=== PATIENT | female | born 1955 | race African-American/Black ===

== ENCOUNTER → 2022-05-04 13:19 | Outpatient (CLI) | payer MEDICARE, SELFPAY ==
--- NOTE | ~2022-05-04 | US_ITS ---
EXAMINATION: US pelvic complete DATE: 05/04/2022 13:35 INDICATION: Postmenopausal bleeding. Comparison:No prior studies for comparison. TECHNIQUE: Multiple transabdominal and endovaginal sonographic images of the pelvis performed. FINDINGS: The uterus measures 10.7 x 6.1 x 5.6 cm. There is a partially calcified uterine mass measur ing 7 x 6.5 x 5.9 cm, consistent with a fibroid. The endometrial complex measures 1.2 cm. The right ovary measures 4.3 x 3 x 3.3 cm. Left ovary is not visualized. There are small follicles in each ovary. Normal doppler signal in both ovaries. There is no free fluid in the pelvis. There are no abnormal masses seen on either side. IMPRESSION: 1. Thickened endomtrial complex. The differential diagnosis includes endometrial hyperplasia, polyp a nd carcinoma. Biopsy is recommended. 2: Enlarged fibroid uterus. Reviewed, dictated and finalized at location B. IMPRESSION: 1. Thickened endomtrial complex. The differential diagnosis includes endometria l hyperplasia, polyp and carcinoma. Biopsy is recommended. 2: Enlarged fibroid uterus.
== END ==
PROVIDERS: PCP Family Medicine; Visit Provider Family Medicine
DX: N95.0 Postmenopausal bleeding (principal); D25.9 Leiomyoma of uterus, unspecified
CPT/HCPCS: 76856

== ENCOUNTER 2022-11-05 10:24 | Outpatient (CLI) | payer MEDICARE, SELFPAY ==
--- NOTE | ~2022-11-05 | MM_ITS ---
EXAMINATION: MM screening [facility] BI w karolina HISTORY: Screening mammogram TECHNIQUE: Craniocaudal and mediolateral oblique 3-D tomosynthesis images were obtained and synthetic 2-D images were generated. CAD analysis was submitted and interpreted. COMPARISON: November 04, 2018, April 29, 2017, February 26, 2016 bilateral screening mammogram examinatio ns BREAST PARENCHYMAL COMPOSITION: There are scattered areas of fibroglandular density. FINDINGS: There is no evidence of suspicious mass, calcification, or architectural distortion to sugg est malignancy in either breast. There has been no suspicious interval change. IMPRESSION: 1. No mammographic evidence of malignancy. 2. Recommend routine screening mammography in one year. BI-RADS Category 1: Negative Reviewed, dictated and finalized at location A. [employer]E [employer]CH[employer]IC
== END 2022-11-05 10:25 | disposition home or self-care (01) ==
PROVIDERS: PCP Family Medicine; Visit Provider Physician Assistant
DX: Z12.31 Encounter for screening mammogram for malignant neoplasm of breast (principal)
CPT/HCPCS: 77063; 77067

== ENCOUNTER → 2023-03-15 13:39 | Outpatient (CLI) | payer MEDICARE, SELFPAY ==
--- NOTE | ~2023-03-15 | US_ITS ---
EXAMINATION: US pelvic complete w TV DATE: 03/15/2023 14:04 INDICATION: Encounter for routine checking of intrauterine device TECHNIQUE: Multiple transabdominal and endovaginal sonographic images of the pelvis were obtained. COMPARISON: 05/04/2022 FINDINGS: The uterus measures 6.3 x 4 x 4.7 cm. The endometrial complex measures 7 mm. The IUD appear s to be in expected position. The ovaries are not visualized however no adnexal abnormality is seen. There is no free fluid in the pelvis. IMPRESSION: 1. IUD appears to be in expected position. Reviewed, dictated and finalized at location []
== END ==
PROVIDERS: PCP Family Medicine; Visit Provider Obstetrics & Gynecology
DX: Z30.431 Encounter for routine checking of intrauterine contraceptive device (principal)
CPT/HCPCS: 76830; 76856

== ENCOUNTER 2025-03-27 15:02 | Emergency (ER) | payer MEDICARE, SELFPAY ==
--- NOTE | ~2025-03-27 | XR_ITS ---
EXAM/ PROCEDURE: XR knee LT min 4V - 03/27/2025 15:30 CDT HISTORY: 69 years old Female with anterior Lt knee pain COMPARISON: None available TECHNIQUE: Four view(s) FINDINGS/ IMPRESSION: There are no fractures or dislocations.Joint space narrowing, subchondral sclerosis, subchondral cyst formation and osteophyte formation, compatible with mild osteoarthritis, most progressed in the medi al tibiofemoral compartment. Reviewed, dictated and finalized at location A.
[2025-03-27 15:26] VITALS: BP 139/99; PULSE 106; RESP 16; TEMP 36.1; O2SAT 100
--- NOTE | 2025-03-27 15:33 | ED_ITS ---
HPI - Extremity Injury (Lower) General Chief Complaint: Extremity Injury, Lower Stated Complaint: L KNEE PAIN Time Seen by Provider: 03/27/25 15:30 Source: patient Mode of arrival: ambulatory Limitations: no limitations History of Present Illness HPI Narrative: Ryann is a 61-year-old female patient presenting to the clinic today with complaints of left knee pain. She reports she felt left knee pain after she was walking at the mall 2 days ago. States there is pain to the anterior knee that is radiating up into her left hip. States that is very painful to walk or move her left knee. Has tried ice and heat to the affected area to help alleviate the pain without relief. She denies any fall or injury. Has osteoarthritis in both knees and gets knee cortisone injections. Related Data Home Medications ?Medication ?Instructions ?Recorded ?Confirmed ?Last Taken ?Type levonorgestrel (Mirena) intrauterine 10/26/22 01/05/25 Unknown History Allergies Allergy/AdvReac Type Severity Reaction Status Date / Time No Known Allergies Allergy Unknown Verified 01/05/25 10:28 Review of Systems Review of Systems: Pertinent positives per HPI. Patient denies any fever, chills, rash, headache, visual changes, dizziness, cough, runny nose, sore throat, shortness of breath, chest pain, palpitations, nausea, vomiting, diarrhea, constipation, abdominal pain, or any urinary issues. [facility] Past Medical History Medical History Anxiety and depression Essential (primary) hypertension Prediabetes Surgical History Surgical History H/O removal of cyst History of tubal ligation Family History Family History Father Patient's father is Carcinoma of colon Malignant neoplasm of prostate Mother Diabetes mellitus Depression Hypertension Ovarian cancer Grandparent Family history of glaucoma Cerebrovascular accident Sibling Diabetes mellitus Hypertension Other Family history of allergic disorder Social History Social History Smoking status: Never smoker Alcohol intake: current Lack of Transportation: No Lack of Food: Never True Current Housing: I Have Housing Concerned About Future Housing: No Difficulty Paying Gas/Electric Bills: No Difficulty Paying for Meds: No Currently Unemployed: No Education: Associate Degree Living arrangements: with family Agree to blood products: Yes Comments At the time of my signature, I reviewed and agree with the nursing past medical, surgical, social, and family history. There is no relevant family history pertinent to the patient complaint. Exam Narrative: General: Well-developed, morbidly obese, in no apparent distress Head: Normocephalic, atraumatic. Cardio: Regular rate and rhythm, s1 and s2 normal, no murmur appreciated. Resp: Clear to auscultation bilaterally, no rhonchi, rales, wheezing or rubs. Musculoskeletal: No deformity, no obvious swelling noted, left anterior/lateral knee tender to palpation, pain with flexion and extension as well as valgus and varus testing, grossly normal range of motion, muscle strength strong and equal, peripheral pulse strong, no edema, no cyanosis, normal gait and station Course Course Emergency Course: Portions of this record may have been created with voice recognition software. Level of Care: Express Care Visit Vital Signs Vital signs: Vital Signs Temperature 36.1 C L 03/27/25 15:26 Pulse Rate 106 H 03/27/25 15:26 Respiratory Rate 16 03/27/25 15:26 Blood Pressure 139/99 H 03/27/25 15:26 Pulse Oximetry 100 03/27/25 15:26 Temperature 36.1 C L 03/27/25 15:26 Pulse Rate 106 H 03/27/25 15:26 Respiratory Rate 16 03/27/25 15:26 Blood Pressure 139/99 H 03/27/25 15:26 Pulse Oximetry 100 03/27/25 15:26 Vital signs reviewed MDM - Extremity Injury (Lower) MDM Narrative Medical decision making narrative: At the time of visit patient is resting comfortably on the exam table. Patient appears to be nontoxic. Diagnostics: X-ray of the left knee was performed and shows osteoarthritis. No sign of fracture or malalignment. Plan: I suspect patient has osteoarthritis an anterior knee pain. Prescription for naproxen was sent to the pharmacy. Ryan wrap was given. Supportive measures were discussed with the patient and they voiced understanding discharge instructions and agrees to treatment plan. Return precautions reviewed Differential Diagnosis Differential diagnosis: Likely acute internal derangement of knee and other (Patellofemoral syndrome, acute knee sprain) Discharge Plan Discharge Clinical Impression: Anterior knee pain Qualifiers: Laterality: left Qualified Code(s): M25.562 - Pain in left knee Patient Disposition: Home Condition: Stable Instructions: Antibiotic Form, Knee Pain (ED) Additional Instructions: Left knee x-rays negative for any sign of fracture or malalignment-does show osteoarthritis Take naproxen as prescribed Rest, ice, elevate, and wear ryan wrap as directed Tylenol/motrin for pain as discussed. Gradually bear weight No running or sports until healed. Follow up with your PCP if symptoms persist more than 1 week. Patient Language: Bulgarian Prescriptions: New naproxen 500 mg tablet 500 mg PO BID PRN (Reason: pain) 7 Days Qty: 14 0RF No Action (DME) blood pressure cuff kit See Rx Instructions .Route .MEDSUPPLY Qty: 1 0RF Rx Instructions: wrist cuff Mounjaro 5 mg/0.5 mL pen injector 5 mg subcut WEEKLY Qty: 6 1RF Mirena 21 mcg/24 hours (8 yrs) 52 mg intrauterine device intrauterine buspirone 5 mg tablet 5 mg PO TID Qty: 90 2RF telmisartan-hydrochlorothiazid 80-25 mg tablet 1 tablet PO DAILY Qty: 90 1RF metformin 500 mg tablet See Rx Instructions .ROUTE .COMPLEX Qty: 90 1RF Dose Instruction: TAKE 1 TABLET BY MOUTH EVERY DAY Rx Instructions: TAKE 1 TABLET BY MOUTH EVERY DAY azelastine 137 mcg (0.1 %) spray,non-aerosol 1 spray intranasal Q12H Qty: 30 1RF Rx Instructions: administer into each nostril montelukast [Singulair] 10 mg tablet 10 mg PO QHS Qty: 90 0RF mometasone 50 mcg/actuation spray,non-aerosol 2 spray intranasal DAILY Qty: 17 3RF Rx Instructions: administer into each nostril bupropion HCl [Wellbutrin XL] 300 mg tablet extended release 24 hr 300 mg PO QAM Qty: 90 1RF amlodipine 5 mg tablet 5 mg PO DAILY Qty: 90 1RF Follow-up/Referrals: Ahser Flores MD [Primary Care Provider] - Time of Disposition: 15:52 Quality NIHSS Nursing Documentation ED NIHSS nursing documentation: reviewed/agree
== END 2025-03-27 16:00 | disposition home or self-care (01) ==
PROVIDERS: Emergency Provider Nurse Practitioner Family; PCP Family Medicine
DX: M25.562 Pain in left knee (principal); I10 Essential (primary) hypertension; R73.03 Prediabetes; M17.0 Bilateral primary osteoarthritis of knee; F41.9 Anxiety disorder, unspecified; F32.A Depression, unspecified
CPT/HCPCS: 73564; 99213; G0463

== ENCOUNTER 2025-06-22 09:17 | Outpatient (CLI) | payer MEDICARE, SELFPAY ==
--- NOTE | ~2025-06-22 | MM_ITS ---
EXAMINATION: MM screening [facility] BI w karolina HISTORY: Screening TECHNIQUE: Craniocaudal and mediolateral oblique 3-D tomosynthesis images were obtained and synthetic 2-D images were generated. CAD analysis was submitted and interpreted. COMPARISON: Comparison to multiple prior studies sequentially, with oldest reviewed study dated 04/29/2017. BREAST PARENCHYMAL COMPOSITION: Not dense: There are scattered areas of fibroglandular density. FINDINGS: There is no evidence of suspicious mass, calcification, or architectural distortion to suggest malignancy in either breast. There has been no suspicious interval change. IMPRESSION: 1. No mammographic evidence of malignancy. 2. Recommend routine screening mammography in one year. BI-RADS Category 1: Negative Reviewed, dictated and finalized at location B.
--- OUTSIDE RECORDS SUMMARY | 2025-06-22 09:27 | XMS_ITS | Clinical Summary ---
Author Organization [facility] [address] [place] [address] [place] [id number] Care Team Providers Care Project Construction Manager Name Role Phone Asher Flores MD Primary Care Provider [phone] Allergies No known active allergies Medications telmisartan (MICARDIS) 40 mg tablet 08/15/2019 Active TRIAMTERENE-HYD ROCHLOROTHIAZID E 37.5-25 mg per capsule 08/10/2019 Active metFORMIN (GLUCOPHAGE) 500 mg tablet Take 500 mg by mouth 2 (two) times a day with meals Active calcium carb,glucon-vit guevara D2 500 mg calcium -200 unit tablet Take by mouth Active ALPRAZolam (XANAX) 0.5 mg tablet 04/10/2022 Active buPROPion XL (WELLBUTRIN XL) 300 mg 24 hr tablet Take 300 mg by mouth every morning 02/05/2022 Active Active Problems Problem Noted Date Diagnosed Date Prediabetes 04/13/2022 Essential hypertension 04/13/2022 Immunizations Immunization Administration Dates Next Due Influenza, Quadrivalent, Spl it, Preservative Free, Intramuscular 10/21/2018 Surgical History Surgery Date Site/Laterality Comments TUBAL LIGATION CYST REMOVAL Medical History Medical History Date Comments Hypertension Prediabetes Family History Medical History Relation Name Comments Arthritis Other Cancer Other Hypertension Other Seizures Other Stroke Other Relation Name Status Comments Other Social History Tobacco Use Types Packs/Day Years Used Date Smoking Tobacco: Never Smokeless Tobacco: Never Alcohol Use Standard Drinks/Week Comments Yes 0 (1 standard drink = 0.6 oz pur e alcohol) Personal Safety Answer Date Recorded Getting School Help Needed Not on file 10/07 Comments Unknown Sex and Gender Information Value Date Recorded Sex Assigned at Not on file Legal Sex 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 Gender Identity Not on file Sexual Orientation Not on file Obstetrics History Last Filed Vital Signs Vital Sign Reading Time Taken Comments Blood Pressure 152/89 04/13/2022 3:12 PM CDT Pulse 99 04/13/2022 3:12 PM CDT Temperature - - Respiratory Rate - - Oxygen Saturation - - Inhaled Oxygen Concentration - - Weight 147 kg (324 lb) 04/13/2022 3:12 PM CDT Height 162.6 cm (5' 4) 04/13/2022 3:12 PM CDT Body Mass Index 55.61 04/13/2022 3:12 PM CDT Plan of Treatment Not on file Insurance [employer] Backpack [facility] REF Care Teams Project Construction Manager Relationship Specialty Start Date End Date Asher Flores MD PCP - General Family Medicine 09/28/19
== END 2025-06-22 09:18 | disposition home or self-care (01) ==
LOC: ANHFOHIMG 09:21
PROVIDERS: PCP Family Medicine; Visit Provider Nurse Practitioner Family
DX: Z12.31 Encounter for screening mammogram for malignant neoplasm of breast (principal)
CPT/HCPCS: 77063; 77067